=== PATIENT | male | born 1980 | race Caucasian/White ===

== ENCOUNTER 2022-02-10 19:22 | Observation (INO) | payer BC, SELFPAY ==
--- NOTE | ~2022-02-10 | CT_ITS ---
EXAMINATION: CT abdomen pelvis w con DATE: 02/10/2022 20:33 INDICATION: Abdominal pain, vomiting, dysuria for 2 days. Recurrent urinary tract infections. Fever. TECHNIQUE: Computed tomography (CT) of the abdomen and pelvis was performed with 100 CC Omnipaque 350 intravenous contrast. Automated exposure control and iterative reconstruction technique were employe d. Exam dose: 703.93 mGy-cm total exam DLP. COMPARISON: None. FINDINGS: There is mild patchy atelectasis in the lower lung zones. Borderline heart size. Small sliding hiatal hernia. Liver, gallbladder, spleen, pancreas, bile ducts and pancreatic duct are unremarkable. Normal morphology of the adrenal glands. There are several up to 7 mm right renal cysts and an approximately 3 mm left renal cyst. No urinary tract calculus or hydroureteronephrosis. The urinary bladder and prostate gland are unrema rkable. There are numerous diverticula of left and right colon, more numerous on the left. There is prominent pericolic fat stranding in the sigmoid colon area. There is an approximately 10 x 15 mm air and fluid containing cavity at the posterior aspect of the sigmoid colon consistent with a small extraluminal collection/small pericolic abscess. There is mild free fluid accumulation in the p elvic area. Small fat-containing umbilical hernia. Chronic mild to moderate compression fracture deformity of T12. Prominent degenerative disease at L4-5 and L5-S1. IMPRESSION: 10 x 15 mm anterior and minimal fluid containing cavity in the pericolic area in the sig moid region, in addition to prominent pericolic fat stranding and mild free fluid, consistent with di verticulitis, small diverticular abscess Small sliding hiatal hernia Hepatic steatosis Occasional small renal cysts Reviewed, dictated and finalized at [facility]. Reviewed, dictated and finalized at [facility]. IMPRESSION: 10 x 15 mm anterior and minimal fluid containing cavity in the per icolic area in the sigmoid region, in addition to prominent pericolic fat stran ding and mild free fluid, consistent with diverticulitis, small diverticular ab scess Small sliding hiatal hernia Hepatic steatosis Occasional small renal cysts
[2022-02-10 19:27] VITALS: BP 127/83; PULSE 113; RESP 18; TEMP 36; O2SAT 98
[2022-02-10] MEDS: ONDANSETRON INJ 4 MG/2 ML VIAL IV PUSH (19:53)
[2022-02-10] MEDS: SODIUM CHLORIDE 0.9% IV 1,000 ML 999 ML IV CONT (19:53)
[2022-02-10 20:01] LABS: Add Urine Microscopic? YES; Appearance Urine Clear (Clear); Bilirubin Urine Negative (Negative); Blood Urine Negative (Negative); Color Urine Yellow (Yellow); Glucose Urine UA Negative (Negative); Ketones Urine 1+ mg/dL (Negative); Leukocyte Esterase Ur Negative LEU/UL (Negative); Mucus Urine Rare /lpf; Nitrate Urine Negative (Negative); Protein Urine Negative (Negative); RBC Urine 0-2 /hpf (0-2); Specific Grav Ur 1.013 (1.001-1.035); Urobilinogen Urine Negative mg/dL (<2.0)
[2022-02-10 20:02] LABS: Basophils Percent Auto 0.3 % (0.2-1.2); Eosinophils Percent Auto 0.1 % (0-4.4); Hemoglobin 14.3 g/dL (14.0-18.0); Immature Granulocyte Absolute 0.05 K/mm3 (0.00-0.031); Immature Granulocyte Percent A 0.3 % (0-0.5); Lymphocytes Absolute Auto 1.18 K/mm3 (0.9-3.2); Lymphocytes Percent Auto 8.1 % (18.3-44.2); Mean Corpuscular HGB Conc 34.9 g/dl (32-36); Mean Corpuscular Hemoglobin 32.1 pg (26-34); Mean Corpuscular Volume 92.1 fl (80-100); Mean Platelet Volume 9.9 fl (7.4-10.4); Monocytes Absolute Auto 1.1 K/mm3 (0.1-0.6); Monocytes Percent Auto 7.8 % (2.6-8.5); Neutrophils Absolute Auto 12.2 K/mm3 (1.3-6.7); Neutrophils Percent Auto 83.4 % (45.5-73.1); Platelet Count Result 206 k/mm3 (150-375); Red Blood Count 4.45 M/mm3 (4.6-6.20); Red Cell Distribution Width 12.6 % (11.5-14.5); White Blood Count 14.6 K/mm3 (4.5-10.0)
--- NOTE | 2022-02-10 20:08 | ED.MALEGU ---
HPI - Male Genitourinary General Chief complaint: Urogenital-Male <Magda Garcia PA-C - Last Filed: 02/10/22 21:44> Stated complaint: UTI, N/V <CASSANDRA Muir Last Filed: 02/10/22 21:44> Time Seen by Provider: 02/10/22 19:39 <CASSANDRA Muir Last Filed: 02/10/22 21:44> Source: patient <CASSANDRA Muir Last Filed: 02/10/22 21:44> Mode of arrival: ambulatory <CASSANDRA Muir Last Filed: 02/10/22 21:44> Limitations: no limitations <CASSANDRA Muir Last Filed: 02/10/22 21:44> History of Present Illness HPI Narrative: This is a 41 year old male that presents to the ER for nausea and vomiting today. Reports he has had fevers the last couple of days. Associated with feelings of incompletely emptying his bladder. Reports he feels like he pulled a muscle in his groin. He has had some dysuria. He was evaluated at urgent care today and started on ciprofloxacin. He tried to take this medication at home, but vomited after which prompted him to be seen. Denies fever or hematuria. <CASSANDAR Muir Last Filed: 02/10/22 21:44> Related Data Home medications: Home Medications Medication Instructions Recorded Confirmed aripiprazole [Abilify] 10 mg PO DAILY 02/10/22 02/10/22 lamotrigine [Lamictal] 100 mg PO DAILY 02/10/22 02/10/22 omeprazole 40 mg PO DAILY 02/10/22 02/10/22 <CASSANDRA Muir Last Filed: 02/10/22 21:44> Allergies/Adverse reactions: Allergies Allergy/AdvReac Type Severity Reaction Status Date / Time No Known Allergies Allergy Verified 02/10/22 19:29 <CASSANDRA Muir Last Filed: 02/10/22 21:44> Review of Systems Review of Systems: CONSTITUTIONAL: Reports fever GASTROINTESTINAL: Reports abdominal pain, nausea, vomiting GENITOURINARY: Reports dysuria. Denies hematuria. <Magda Garcia PA-C - Last Filed: 02/10/22 21:44> All systems reviewed & are unremarkable except as noted in HPI and below <Magda Garcia PA-C - Last Filed: 02/10/22 21:44> PMFSH Past Medical History Medical History: Medical History History of bipolar disorder <Magda Garcia PA-C - Last Filed: 02/10/22 21:44> Surgical History Surgical History: Surgical History History of appendectomy <Magda Garcia PA-C - Last Filed: 02/10/22 21:44> Social History Social History: Social History Smoking status: Never smoker Alcohol intake: current Substance use: never Substance use type: does not use Spiritual care concerns: No <Magda Garcia PA-C - Last Filed: 02/10/22 21:44> Exam Narrative: GENERAL: Well-appearing, well-nourished, and in no acute distress. HEAD: Normocephalic, atraumatic. EYES: EOMI. CHEST: Clear to auscultation. No respiratory distress. No wheezes rales or rhonchi HEART: Regular rate and rhythm. No murmur heard. Normal peripheral pulses. ABDOMEN: Soft, nondistended, normal active bowel sounds. Mild tenderness to palpation throughout the lower abdomen, without guarding EXTREMITIES: Normal range of motion. No edema. SKIN: Warm, dry, no rash. NEURO: No focal deficits. Alert and oriented x3. PSYCH: Normal mood and affect <Magda Garcia PA-C - Last Filed: 02/10/22 21:44> Course FISH FLIPPER/PA Physician Supervision For this patient encounter, I reviewed the FISH FLIPPER or PA documentation, treatment plan, and medical decision making; and I had [id number] time with this patient. <Bright Wheeler MD - Last Filed: 02/11/22 02:31> Consultations Consultation #1: Spoke with general surgery who will consult. <Magda Garcia PA-C - Last Filed: 02/10/22 21:44> Date: 02/10/22 <Magda Garcia PA-C - Last Filed: 02/10/22 21:44> Consultation #2: Spoke with hospitalist about patien
[2022-02-10 20:13] LABS: Alanine Aminotransferase 34 U/L (4-50); Albumin Level 4.3 g/dL (3.5-5.1); Alkaline Phosphatase 55 U/L (38-126); Anion Gap 9 mmol/L (8-16); Aspartate Amino Transferase 31 U/L (17-59); Bilirubin,Total 1.5 mg/dL (0.2-1.3); Blood Urea Nitrogen 10 mg/dL (9-20); Calcium 8.7 mg/dL (8.4-10.2); Carbon Dioxide 23 mmol/L (22-30); Chloride 102 mmol/L (98-107); Estimated CRCL calculation 113 ml/min; Estimated Glomerular Filt Rate > 60; Glucose 140 mg/dL (65-110); Lipase 20 U/L (23-300); Sodium 134 mmol/L (137-145)
[2022-02-10 21:00] LABS: Lactic Acid Reflex 0.9 mmol/L (0.7-2.1)
[2022-02-10 21:16] VITALS: BP 113/92; PULSE 78; RESP 18; O2SAT 98
--- NOTE | 2022-02-10 21:42 | PM.IMHP ---
H&P: HPI History of Present Illness Date/Time: 02/10/22 21:42 Chief Complaint: 41 years old male with past medical history of bipolar disorder presented to the hospital with nausea and vomiting started today multiple times a day associated with difficulty with urination patient had fever started 2 days ago no aggravating or relieving factor patient went to the urgent care where he was diagnosed as UTI treated with the Cipro and was sent home patient continued to have vomiting presented back to the ER CT scan of the abdomen was done shows acute diverticulitis with small abscess surgery was consulted patient was started on broad-spectrum IV antibiotic IV fluid admitted for further evaluation and treatment Review of Systems Review of Systems: All systems reviewed & are unremarkable except as noted in HPI and below PMFSH Past Medical History Medical History History of bipolar disorder Surgical History Surgical History History of appendectomy Social History Social History Substance use: never Meds Home Medications and Allergies Home Medications Medication Instructions Recorded Confirmed Type aripiprazole [Abilify] 10 mg PO DAILY 02/10/22 02/10/22 History lamotrigine [Lamictal] 100 mg PO DAILY 02/10/22 02/10/22 History omeprazole 40 mg PO DAILY 02/10/22 02/10/22 History Allergies Allergy/AdvReac Type Severity Reaction Status Date / Time No Known Allergies Allergy Verified 02/10/22 19:29 Vital Signs Vital Signs - 24 hr 02/10/22 19:27 02/10/22 21:16 Temperature 96.8 F L Pulse Rate 113 H 78 Respiratory Rate 18 18 Blood Pressure 127/83 113/92 H Pulse Oximetry 98 98 Exam Const: General: in distress HENMT: Mouth: Yes dry mucous membranes Eyes: Sclera: sclerae normal Neck: Neck: supple Resp: Effort & Inspection: normal respiratory effort Auscultation: clear to auscultation bilaterally Cardio: Rate: regular rate and not bradycardic Rhythm: regular rhythm and regular rhythm Heart sounds: no gallops, no murmurs and no rubs GI: Inspection: non-distended GI Palp: Yes Tenderness to palpation present (GI), No Guarding due to palpation present (GI) and No Hernia present Auscultation: normal bowel sounds and bowels sounds normal Skin: General skin exam: normal color Neuro: Cognition (Neuro): normal cognition Speech: normal speech Motor exam (neuro): 5/5 motor strength present throughout and Normal motor muscle tone present throughout Sensory Exam: normal sensation Extrem: General: normal to inspection Right upper extremity: normal to inspection and no joint enlargement Left upper extremity: normal to inspection and no joint enlargement Right lower extremity: normal to inspection and no joint enlargement Left lower extremity: normal to inspection and no joint enlargement Psych: Mental Status: mental status grossly normal H&P: Results Labs Labs: Short CBC 02/10/22 Range/Units 19:48 WBC 14.6 H (4.5-10.0) K/mm3 Hgb 14.3 (14.0-18.0) g/dL Hct 41.0 L (42.0-52.0) % Plt Count 206 (150-375) k/mm3 BMP 02/10/22 19:48 Sodium 134 L Potassium 4.0 Chloride 102 Carbon Dioxide 23 BUN 10 Creatinine 0.80 Glucose 140 H Calcium 8.7 Liver Function 02/10/22 Range/Units 19:48 Total Bilirubin 1.5 H (0.2-1.3) mg/dL AST 31 (17-59) U/L ALT 34 (4-50) U/L Alkaline Phosphatase 55 (38-126) U/L Albumin 4.3 (3.5-5.1) g/dL Urine 02/10/22 Range/Units 19:48 Urine Color Yellow (Yellow) Urine Appearance Clear (Clear) Urine pH 7.0 (5.0-9.0) Ur Specific [place] 1.013 (1.001-1.035) Urine Protein Negative (Negative) mg/dL Urine Glucose (UA) Negative (Negative) mg/dL Assessment and Plan Assessment and plan (1) Diverticulitis of intestine with
[2022-02-10 22:00] VITALS: BP 118/79; PULSE 86; RESP 18; TEMP 36.9; O2SAT 97
[2022-02-10 22:05] VITALS: BP 107/68; PULSE 93; RESP 18
--- NOTE | 2022-02-10 22:05 | PC.NURSE ---
Pt and family requesting transfer to [facility] for care if surgery is required. Provider is aware, Inpatient doctor at bedside for evaluation.
[2022-02-10 22:40] VITALS: BMI 28.2
[2022-02-10] MEDS: SODIUM CHLORIDE 0.9% IV 1,000 ML 100 ML IV CONT (22:45)
--- NOTE | 2022-02-10 22:52 | ADMGEN ---
This patient, Davy Greco, was admitted to [facility] Surg Room 331-01. Patient/family oriented to hospital policies and general routines including ID bracelet, bed and alarms, visiting hours, pain management, procedures, bathroom and other care routines, personal items, smoking policy, room service/diet, and visiting hours. Information on how to activate the Rapid Response Team has been discussed. Patient/Family are encouraged to report perceived risks to care and to ask questions if they do not understand what they are told or what they should do.
[2022-02-11] VITALS (8 sets, daily range): BP systolic 104–130; BP diastolic 69–82; PULSE 80–97; RESP 16–18; TEMP 36.3–38.2; O2SAT 96–100
[2022-02-11 06:00] LABS: Basophils Percent Auto 0.3 % (0.2-1.2); Eosinophils Absolute Auto 0.1 K/mm3 (0-0.3); Eosinophils Percent Auto 0.6 % (0-4.4); Hematocrit 39.7 % (42.0-52.0); Hemoglobin 13.4 g/dL (14.0-18.0); Immature Granulocyte Absolute 0.04 K/mm3 (0.00-0.031); Immature Granulocyte Percent A 0.3 % (0-0.5); Lymphocytes Absolute Auto 1.06 K/mm3 (0.9-3.2); Lymphocytes Percent Auto 9.2 % (18.3-44.2); Mean Corpuscular HGB Conc 33.8 g/dl (32-36); Mean Corpuscular Hemoglobin 31.8 pg (26-34); Mean Corpuscular Volume 94.1 fl (80-100); Mean Platelet Volume 10.1 fl (7.4-10.4); Monocytes Absolute Auto 0.8 K/mm3 (0.1-0.6); Monocytes Percent Auto 6.8 % (2.6-8.5); Neutrophils Absolute Auto 9.6 K/mm3 (1.3-6.7); Neutrophils Percent Auto 82.8 % (45.5-73.1); Platelet Count Result 181 k/mm3 (150-375); Red Blood Count 4.22 M/mm3 (4.6-6.20); Red Cell Distribution Width 12.7 % (11.5-14.5); White Blood Count 11.6 K/mm3 (4.5-10.0)
[2022-02-11] MEDS: SODIUM CHLORIDE 0.9% IV 1,000 ML 100 ML IV CONT ×2 (06:07→18:10)
[2022-02-11 06:17] LABS: Alanine Aminotransferase 26 U/L (4-50); Albumin Level 3.7 g/dL (3.5-5.1); Alkaline Phosphatase 55 U/L (38-126); Anion Gap 6 mmol/L (8-16); Aspartate Amino Transferase 20 U/L (17-59); Bilirubin,Total 1.3 mg/dL (0.2-1.3); Blood Urea Nitrogen 8 mg/dL (9-20); Calcium 8.2 mg/dL (8.4-10.2); Carbon Dioxide 25 mmol/L (22-30); Chloride 108 mmol/L (98-107); Estimated CRCL calculation 101 ml/min; Estimated Glomerular Filt Rate > 60; Glucose 115 mg/dL (65-110); Potassium 3.8 mmol/L (3.4-5.0); Sodium 139 mmol/L (137-145)
[2022-02-11] MEDS: ACETAMINOPHEN 325 MG TABLET 650 MG PO (08:01)
[2022-02-11] MEDS: HEPARIN SODIUM 5,000 UNITS/ML VIAL 5000 UNITS SUB-Q (08:01)
--- NOTE | 2022-02-11 08:28 | PM.CNGS ---
Assessment and Plan Assessment and plan (1) Diverticulitis of intestine with abscess: Qualifiers: Diverticulitis bleeding: without bleeding Diverticulitis site: large intestine Qualified Code(s): K57.20 - Diverticulitis of large intestine with perforation and abscess without bleeding Code(s): K57.80 - Diverticulitis of intestine, part unspecified, with perforation and abscess without bleeding Status: Acute Assessment and Plan: exam benign, cont IV abx, will start clears and ADAT, if lexii diet prob home c po abx, f/u 2 wks to schedule interval colonoscopy History of Present Illness Consult details Consult date: 02/11/22 Reason for consult: abdominal pain Requesting physician: Lola Rivera M.A., MD Narrative: The patient is a 41-year-old male with a history of bipolar disease and presenting to the emergency department complaining of severe lower abdominal pain, pressure. The patient reports symptoms have been present for the last 48-72 hours and associated with nausea and vomiting. The patient reports the pain is more pressure and dull, worse on the left side. The patient denies any previous symptomatology. The patient reports he has been having some diarrhea. Patient also describes anorexia and a general feeling of malaise, although no fevers or chills. Review of Systems Constitutional: Constitutional: Reports anorexia, Denies chills, Reports fatigue, Denies fever(s), Reports lethargy, Reports malaise, Denies night sweats, Reports poor appetite, Reports weakness, Denies weight gain and Denies weight loss Eyes: Eyes: Reports no additional eye complaints ENT: Reports system reviewed and no additional complaints, except as documented Cardiovascular: Cardiovascular: Reports no additional cardiovascular complaints Respiratory: Respiratory: Reports no additional respiratory complaints Gastrointestinal: Gastrointestinal: Reports as per HPI, Reports abdominal pain, Reports bloating, Reports change in bowel habits, Reports change in stool character, Reports GI cramping, Reports early satiety, Reports diarrhea, Reports loose stools, Reports nausea, Reports vomiting and Denies hematemesis Genitourinary: Genitourinary: Reports dysuria and Reports urinary hesitancy Musculoskeletal: Musculoskeletal: Reports no additional musculoskeletal complaints Integumentary/Breasts: Skin/Breast: Reports system reviewed and no additional complaints, except as docu Neurologic: Reports system reviewed and no additional complaints, except as documented Psychiatric: Psychiatric: Reports no additional psychiatric complaints Endocrine: Endocrine: Reports no additional endocrine complaints Hematologic/Lymphatic: Hematologic/Lymphatic: Reports no additional hematologic/lymphatic complaints Allergic/Immunologic: Allergic/Immunologic: Reports no additional allergic/immunologic complaints [facility] Past Medical History Medical History History of bipolar disorder Surgical History Surgical History History of appendectomy Social History Social History Smoking status: Never smoker Alcohol intake: current Substance use: never Substance use type: does not use Spiritual care concerns: No Comments FH - denies known diverticular dz, CRC Meds Home Medications and Allergies Home Medications Medication Instructions Recorded Confirmed Type aripiprazole [Abilify] 10 mg PO DAILY 02/10/22 02/10/22 History lamotrigine [Lamictal] 100 mg PO DAILY 02/10/22 02/10/22 History omeprazole 40 mg PO DAILY 02/10/22 02/10/22 History Allergies Allergy/AdvReac Type Severity Reaction Status Date / Time No Known Allergies Allergy Verified 02/10/22 19:29 Vital Signs Vital Signs - 24 hr 02/10/22 19:27 02/10/22 21:16 02/10/22 22:00 Temperature 36.0 C L 36.9 C
[2022-02-11] MEDS: lamoTRIgine 100 MG TABLET PO (10:14)
[2022-02-11] MEDS: ARIPiprazole 10 MG TABLET PO (10:14)
--- NOTE | 2022-02-11 10:46 | PM.IMPN ---
Progress Note: A&P Assessment and Plan (1) Diverticulitis of intestine with abscess: Qualifiers: Diverticulitis bleeding: without bleeding Diverticulitis site: large intestine Qualified Code(s): K57.20 - Diverticulitis of large intestine with perforation and abscess without bleeding Code(s): K57.80 - Diverticulitis of intestine, part unspecified, with perforation and abscess without bleeding Status: Acute Assessment and Plan: -Reviewed CT scan of the abdomen -Shows positive diverticulitis with small abscess -Surgery consult -IV Zosyn -IV hydration -per surgery ADAT (2) Dehydration: Code(s): E86.0 - Dehydration Status: Acute Assessment and Plan: -continue IV fluid (3) Abnormal CT of the abdomen: Code(s): R93.5 - Abnormal findings on diagnostic imaging of other abdominal regions, including retroperitoneum Status: Acute Assessment and Plan: -Kidney cyst -Small fat-containing umbilical hernia. -Chronic mild to moderate compression fracture deformity of T12. -Prominent degenerative disease at L4-5 and L5-S1 Continue to monitor follow-up with PCP as outpatient. (4) Bipolar disorder: Code(s): F31.9 - Bipolar disorder, unspecified Status: Acute Assessment and Plan: -Stable continue Lamictal (5) Sepsis: Code(s): A41.9 - Sepsis, unspecified organism Status: Acute Assessment and Plan: -met SIRS criteria on arrival with fever of 100.7, leukocytosis of 14.6, and tachycardia at 113 -received IVF bolus and now going at 125/hr -source is diverticulitis -improving (6) Hyperglycemia: Code(s): R73.9 - Hyperglycemia, unspecified Status: Acute Assessment and Plan: -likely reactive -A1c is 5 Subjective Date/time seen: 02/11/22 10:46 Interval history: 41 years old male with past medical history of bipolar disorder admitted for diverticulitis and sepsis. Pt is feeling better currently. Tolerating clears. No N/V/abd pain. Did have an episode of watery diarrhea this morning. Also had fever overnight and is diaphoretic on exam. No cp/sob. Review of Systems Review of Systems: All systems reviewed & are unremarkable except as noted in HPI and below Exam Narrative: General: No acute distress, diaphoretic, comfortable Eyes: PERRL, no scleral icterus HEENT: NCAT, external ears normal, MMM Respiratory: No respiratory distress, Lungs CTA bilaterally, no wheezing Cardiovascular: RRR, no murmur Abdominal: Soft, nontender, non distended, no rebound or guarding Musculoskeletal: Moves all 4 extremities, no edema Neurological: A/Ox3, speech clear, no facial asymmetry Skin: Warm, diaphoretic Psychiatric: Normal affect, normal mood Objective Data Vital Signs Vital Signs: Vital Signs - 24 hr 02/10/22 19:27 02/10/22 21:16 02/10/22 22:00 Temperature 96.8 F L 98.4 F Pulse Rate 113 H 78 86 Respiratory Rate 18 18 18 Blood Pressure 127/83 113/92 H 118/79 Pulse Oximetry 98 98 97 02/10/22 22:05 02/11/22 00:00 02/11/22 04:00 Temperature 98.0 F 100.7 F H Pulse Rate 93 80 87 Respiratory Rate 18 18 18 Blood Pressure 107/68 104/69 114/77 Pulse Oximetry 98 96 02/11/22 07:57 02/11/22 08:01 02/11/22 09:01 Temperature 99.8 F H 99.8 F H 97.3 F L Pulse Rate Respiratory Rate Blood Pressure Pulse Oximetry Intake/Output Intake/Output: Intake & Output 02/08/22 02/09/22 02/10/22 02/11/22 23:59 23:59 23:59 23:59 Intake Total 1150 1050 Balance 1150 1050 Meds/Results Medications: Active Medications Generic Name Dose Route Start Last Admin Trade Name Freq PRN Reason Stop Dose Admin Acetaminophen 650 mg 02/10/22 21:40 02/11/22 08:01 Acetaminophen 325 Mg Tablet PO 650 mg Q4H PRN Administration Mild Pain (1-3) or Fever Hydrocodone Bitart/Acetaminophen 1 tab 02/10/22 21:40 Hydrocodone/Acetaminophen
[2022-02-12] MEDS: SODIUM CHLORIDE 0.9% IV 1,000 ML 100 ML IV CONT (05:33)
[2022-02-12 06:00] VITALS: BP 125/82; PULSE 80; RESP 16; TEMP 37; O2SAT 97
[2022-02-12 06:03] LABS: Basophils Percent Auto 0.5 % (0.2-1.2); Eosinophils Absolute Auto 0.2 K/mm3 (0-0.3); Eosinophils Percent Auto 2.2 % (0-4.4); Hematocrit 36.4 % (42.0-52.0); Hemoglobin 12.5 g/dL (14.0-18.0); Immature Granulocyte Absolute 0.02 K/mm3 (0.00-0.031); Immature Granulocyte Percent A 0.2 % (0-0.5); Lymphocytes Absolute Auto 1.49 K/mm3 (0.9-3.2); Lymphocytes Percent Auto 18.3 % (18.3-44.2); Mean Corpuscular HGB Conc 34.3 g/dl (32-36); Mean Corpuscular Hemoglobin 31.6 pg (26-34); Mean Corpuscular Volume 91.9 fl (80-100); Mean Platelet Volume 9.9 fl (7.4-10.4); Monocytes Absolute Auto 0.6 K/mm3 (0.1-0.6); Monocytes Percent Auto 7.2 % (2.6-8.5); Neutrophils Absolute Auto 5.8 K/mm3 (1.3-6.7); Neutrophils Percent Auto 71.6 % (45.5-73.1); Platelet Count Result 189 k/mm3 (150-375); Red Blood Count 3.96 M/mm3 (4.6-6.20); Red Cell Distribution Width 12.4 % (11.5-14.5); White Blood Count 8.2 K/mm3 (4.5-10.0)
[2022-02-12 06:14] LABS: Alanine Aminotransferase 23 U/L (4-50); Albumin Level 3.4 g/dL (3.5-5.1); Alkaline Phosphatase 48 U/L (38-126); Anion Gap 5 mmol/L (8-16); Aspartate Amino Transferase 19 U/L (17-59); Bilirubin,Total 0.6 mg/dL (0.2-1.3); Blood Urea Nitrogen 6 mg/dL (9-20); Carbon Dioxide 25 mmol/L (22-30); Chloride 110 mmol/L (98-107); Estimated CRCL calculation 101 ml/min; Estimated Glomerular Filt Rate > 60; Glucose 112 mg/dL (65-110); Potassium 3.7 mmol/L (3.4-5.0); Sodium 140 mmol/L (137-145)
[2022-02-12 08:00] VITALS: PULSE 80; RESP 16; O2SAT 97
[2022-02-12] MEDS: lamoTRIgine 100 MG TABLET PO (08:37)
[2022-02-12] MEDS: ARIPiprazole 10 MG TABLET PO (08:39)
--- NOTE | 2022-02-12 09:12 | PM.IMPN ---
Progress Note: A&P Assessment and Plan (1) Diverticulitis of intestine with abscess: Qualifiers: Diverticulitis bleeding: without bleeding Diverticulitis site: large intestine Qualified Code(s): K57.20 - Diverticulitis of large intestine with perforation and abscess without bleeding Code(s): K57.80 - Diverticulitis of intestine, part unspecified, with perforation and abscess without bleeding Status: Acute Assessment and Plan: -Reviewed CT scan of the abdomen -Shows positive diverticulitis with small abscess -IV Zosyn -IV hydration -per surgery ADAT (2) Sepsis: Code(s): A41.9 - Sepsis, unspecified organism Status: Acute Assessment and Plan: -met SIRS criteria on arrival with fever of 100.7, leukocytosis of 14.6, and tachycardia at 113 -received IVF bolus and now going at 125/hr -source is diverticulitis -improving, will dc IVF -no fever x24 hours, if BC have no growth tomorrow after 48 hours, can likely transition to PO abx and dc home (3) Dehydration: Code(s): E86.0 - Dehydration Status: Acute Assessment and Plan: -improved (4) Abnormal CT of the abdomen: Code(s): R93.5 - Abnormal findings on diagnostic imaging of other abdominal regions, including retroperitoneum Status: Acute Assessment and Plan: -Kidney cyst -Small fat-containing umbilical hernia. -Chronic mild to moderate compression fracture deformity of T12. 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 (5) Bipolar disorder: Code(s): F31.9 - Bipolar disorder, unspecified Status: Acute Assessment and Plan: -Stable continue Lamictal (6) Hyperglycemia: Code(s): R73.9 - Hyperglycemia, unspecified Status: Acute Assessment and Plan: -likely reactive -A1c is 5 Subjective Date/time seen: 02/12/22 09:12 Interval history: 41 years old male with past medical history of bipolar disorder admitted for diverticulitis and sepsis. Pt is feeling better currently. Tolerating low fiber. No N/V/abd pain. Still having diarrhea but it is less watery. No cp/sob. Review of Systems Review of Systems: All systems reviewed & are unremarkable except as noted in HPI and below Exam Narrative: General: No acute distress, non toxic Eyes: PERRL, no scleral icterus HEENT: NCAT, external ears normal, MMM Respiratory: No respiratory distress, Lungs CTA bilaterally, no wheezing Cardiovascular: RRR, no murmur Abdominal: Soft, nontender, non distended, no rebound or guarding Musculoskeletal: Moves all 4 extremities, no edema Neurological: A/Ox3, speech clear, no facial asymmetry Skin: Warm, dry Psychiatric: Normal affect, normal mood Objective Data Vital Signs Vital Signs: Vital Signs - 24 hr 02/11/22 14:00 02/11/22 22:00 02/12/22 06:00 Temperature 98.4 F 99.5 F 98.6 F Pulse Rate 89 97 80 Respiratory Rate 16 16 16 Blood Pressure 122/82 130/80 125/82 Pulse Oximetry 100 97 97 Intake/Output Intake/Output: Intake & Output 02/09/22 02/10/22 02/11/22 02/12/22 23:59 23:59 23:59 23:59 Intake Total 1150 2930 1690 Balance 1150 2930 1690 Meds/Results Medications: Active Medications Generic Name Dose Route Start Last Admin Trade Name Freq PRN Reason Stop Dose Admin Acetaminophen 650 mg 02/10/22 21:40 02/11/22 08:01 Acetaminophen 325 Mg Tablet PO 650 mg Q4H PRN Administration Mild Pain (1-3) or Fever Hydrocodone Bitart/Acetaminophen 1 tab 02/10/22 21:40 Hydrocodone/Acetaminophen (*Crx) 5-325 Mg Tablet PO Q4H PRN Moderate Pain (4-6) Al Hydrox/Mg Hydrox/Simethicone 30 ml 02/10/22 21:40 Mag Hydrox/Al Hydrox/Simeth 30 Ml Udc PO QID PRN Dyspepsia Aripiprazole 10 mg 02/11/22 09:00 02/12/22 08:39 Aripiprazole 10 Mg Tablet PO 10 mg DAILY NICKO Administration Heparin Sodium (Porcine) 5
--- NOTE | 2022-02-12 11:00 | PM.PNGS ---
Progress Note: A&P Assessment and Plan (1) Diverticulitis of intestine with abscess: Qualifiers: Diverticulitis bleeding: without bleeding Diverticulitis site: large intestine Qualified Code(s): K57.20 - Diverticulitis of large intestine with perforation and abscess without bleeding Code(s): K57.80 - Diverticulitis of intestine, part unspecified, with perforation and abscess without bleeding Status: Acute Assessment and Plan: Improved. Plan to discharge tomorrow if condition remains the same. Will continue low residue diet for 2 weeks and follow up with Dr. Carter for further management. (2) Sepsis: Qualifiers: Sepsis type: sepsis due to unspecified organism Sepsis acute organ dysfunction status: unspecified Qualified Code(s): A41.9 - Sepsis, unspecified organism Code(s): A41.9 - Sepsis, unspecified organism Status: Acute Assessment and Plan: Spoke with hospitalist. Still waiting for blood culture results which will be back tomorrow. Probably home tomorrow if blood culture results are negative. Subjective Subjective Date/Time Seen: 02/12/22 11:00 Patient reports: no new complaints, feels better, tolerating a regular diet, bowel movement and afebrile Review of Systems Review of Systems: All systems reviewed & are unremarkable except as noted in HPI and below Constitutional: Constitutional: Denies headache(s) Cardiovascular: Cardiovascular: Denies chest pain and Denies dyspnea Respiratory: Respiratory: Denies cough and Denies dyspnea Gastrointestinal: Gastrointestinal: Reports as per HPI, Denies abdominal pain, Denies diarrhea, Denies nausea and Denies vomiting Exam Const: General: comfortable and no acute distress; No confusion Orientation/consciousness: patient oriented x3 and No confusion GI: Inspection: normal to inspection and non-distended GI Palp: Yes Soft to palpation, No Tenderness to palpation present (GI), No Guarding due to palpation present (GI), No Palpable mass present and No Rebound tenderness present Auscultation: normal bowel sounds Neuro: General: patient oriented x3, no focal motor deficits and No confusion Extrem: General: no calf tenderness and no edema Psych: Affect: normal affect Insight: Good insight present (Psych) Judgement: Good judgement present (Psych) Objective Data Vital Signs Vital Signs: Vital Signs - 24 hr 02/11/22 14:00 02/11/22 22:00 02/12/22 06:00 Temperature 36.9 C 37.5 C 37.0 C Pulse Rate 89 97 80 Respiratory Rate 16 16 16 Blood Pressure 122/82 130/80 125/82 Pulse Oximetry 100 97 97 02/12/22 08:00 Temperature Pulse Rate 80 Respiratory Rate 16 Blood Pressure Pulse Oximetry 97 Intake/Output Intake/Output: Intake & Output 02/09/22 02/10/22 02/11/22 02/12/22 23:59 23:59 23:59 23:59 Intake Total 1150 2930 1690 Balance 1150 2930 1690 Meds/Results Medications: Active Medications Generic Name Dose Route Start Last Admin Trade Name Freq PRN Reason Stop Dose Admin Acetaminophen 650 mg 02/10/22 21:40 02/11/22 08:01 Acetaminophen 325 Mg Tablet PO 650 mg Q4H PRN Administration Mild Pain (1-3) or Fever Hydrocodone Bitart/Acetaminophen 1 tab 02/10/22 21:40 Hydrocodone/Acetaminophen (*Crx) 5-325 Mg Tablet PO Q4H PRN Moderate Pain (4-6) Al Hydrox/Mg Hydrox/Simethicone 30 ml 02/10/22 21:40 Mag Hydrox/Al Hydrox/Simeth 30 Ml Udc PO QID PRN Dyspepsia Aripiprazole 10 mg 02/11/22 09:00 02/12/22 08:39 Aripiprazole 10 Mg Tablet PO 10 mg DAILY NICKO Administration Heparin Sodium (Porcine) 5,000 units 02/11/22 09:00 02/12/22 08:36 Heparin Sodium 5,000 Units/Ml Vial SUB-Q Not Given Q12HR NICKO Piperacillin/Tazobactam/Dextrose 3.375 gm in 50 mls @ 100 mls/hr 02/11/22 06:00 02/12/22 05:29 Zosyn 3.375 Gm/D5w 50ml Pm IVPB 100 mls/hr Q6HR NICKO Administration Lamotrigine 100 mg 02/11/22 09:00 02/12/22 08:37 Marti
--- NOTE | 2022-02-12 12:45 | PC.NURSE ---
On 02/12/22, the student, Wale Gómez, provided care and completed [facility] documentation on this patient. I have reviewed the student's documentation and agree with the findings.
[2022-02-12 14:00] VITALS: BP 122/78; PULSE 81; RESP 16; TEMP 36.1; O2SAT 97
[2022-02-12 22:00] VITALS: BP 131/88; PULSE 82; RESP 16; TEMP 37.4; O2SAT 98
[2022-02-13 06:00] VITALS: BP 131/85; PULSE 80; RESP 16; TEMP 36.9; O2SAT 96
[2022-02-13 06:13] LABS: Basophils Percent Auto 0.5 % (0.2-1.2); Eosinophils Absolute Auto 0.3 K/mm3 (0-0.3); Eosinophils Percent Auto 3.4 % (0-4.4); Hematocrit 41.6 % (42.0-52.0); Hemoglobin 14.1 g/dL (14.0-18.0); Immature Granulocyte Absolute 0.03 K/mm3 (0.00-0.031); Immature Granulocyte Percent A 0.4 % (0-0.5); Lymphocytes Absolute Auto 1.71 K/mm3 (0.9-3.2); Lymphocytes Percent Auto 22.6 % (18.3-44.2); Mean Corpuscular HGB Conc 33.9 g/dl (32-36); Mean Corpuscular Hemoglobin 31.8 pg (26-34); Mean Corpuscular Volume 93.7 fl (80-100); Mean Platelet Volume 9.9 fl (7.4-10.4); Monocytes Absolute Auto 0.5 K/mm3 (0.1-0.6); Neutrophils Percent Auto 66.1 % (45.5-73.1); Platelet Count Result 230 k/mm3 (150-375); Red Blood Count 4.44 M/mm3 (4.6-6.20); Red Cell Distribution Width 12.3 % (11.5-14.5); White Blood Count 7.6 K/mm3 (4.5-10.0)
[2022-02-13 06:19] LABS: Alanine Aminotransferase 25 U/L (4-50); Alkaline Phosphatase 51 U/L (38-126); Anion Gap 8 mmol/L (8-16); Aspartate Amino Transferase 24 U/L (17-59); Bilirubin,Total 0.6 mg/dL (0.2-1.3); Blood Urea Nitrogen 10 mg/dL (9-20); Calcium 8.7 mg/dL (8.4-10.2); Carbon Dioxide 23 mmol/L (22-30); Chloride 108 mmol/L (98-107); Estimated CRCL calculation 101 ml/min; Estimated Glomerular Filt Rate > 60; Glucose 118 mg/dL (65-110); Potassium 3.9 mmol/L (3.4-5.0); Sodium 139 mmol/L (137-145)
[2022-02-13 08:00] VITALS: PULSE 80; RESP 16; O2SAT 96
--- NOTE | 2022-02-13 08:30 | PM.DS ---
DS: Admitting Diagnosis Discharge Date 02/13/22829 Admitting Diagnosis diverticulitis/sepsis DS: Discharge Diagnosis Discharge Diagnosis (1) Diverticulitis of intestine with abscess: Qualifiers: Diverticulitis bleeding: without bleeding Diverticulitis site: large intestine Qualified Code(s): K57.20 - Diverticulitis of large intestine with perforation and abscess without bleeding Code(s): K57.80 - Diverticulitis of intestine, part unspecified, with perforation and abscess without bleeding Status: Acute Assessment and Plan: -Reviewed CT scan of the abdomen -Shows positive diverticulitis with small abscess -IV Zosyn -IV hydration -per surgery ADAT (2) Sepsis: Qualifiers: Sepsis acute organ dysfunction status: unspecified Sepsis type: sepsis due to unspecified organism Qualified Code(s): A41.9 - Sepsis, unspecified organism Code(s): A41.9 - Sepsis, unspecified organism Status: Acute Assessment and Plan: -met SIRS criteria on arrival with fever of 100.7, leukocytosis of 14.6, and tachycardia at 113 -received IVF bolus and now going at 125/hr -source is diverticulitis -improving, will dc IVF -no fever x24 hours, if BC have no growth tomorrow after 48 hours, can likely transition to PO abx and dc home (3) Dehydration: Code(s): E86.0 - Dehydration Status: Acute Assessment and Plan: -improved (4) Abnormal CT of the abdomen: Code(s): R93.5 - Abnormal findings on diagnostic imaging of other abdominal regions, including retroperitoneum Status: Acute Assessment and Plan: -Kidney cyst -Small fat-containing umbilical hernia. -Chronic mild to moderate compression fracture deformity of T12. 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 (5) Bipolar disorder: Code(s): F31.9 - Bipolar disorder, unspecified Status: Acute Assessment and Plan: -Stable continue Lamictal (6) Hyperglycemia: Code(s): R73.9 - Hyperglycemia, unspecified Status: Acute Assessment and Plan: -likely reactive -A1c is 5 DS: Summary Hospital Course Hospital Course: Patient is a 41-year-old male with a past medical history of bipolar disorder and appendectomy who presented to the hospital nausea vomiting and difficulty urinating. CT of the abdomen showed acute diverticulitis with small abscess patient was started on IV Zosyn and fluids. General surgery was consulted. Labs have been on trend and white blood cell count is trending downward. Patient has been a fever of for greater than 24 hours and heart rate has returned back to normal. Blood cultures have no growth to date. Diet has been restarted and advance slowly. Patient is comfortable and ready to go. Patient denies any chest pain, shortness of breath, nausea, vomiting, diarrhea, constipation, weakness or fatigue. Patient will be discharged on antibiotics. Lab work and vital signs are stable. Status at Discharge Functional status at discharge: independent ambulation Overall status at discharge: patient is progressing back to baseline Time Spent with Patient Time attestation: Total time spent providing and/or coordinating discharge services: 36 minutes Time spent: Greater than 30 minutes Specific discharge activities: Diagnostic testing, chart review, developing a treatment plan, education, care coordination documentation, physical exam, result review Exam Const: General: cooperative, healthy appearing, no acute distress, well developed, alert and awake Nutritional Appearance: well nourished Orientation/consciousness: patient oriented x3 Limitations: no limitations HENMT: Head: normal to inspection Ears: hearing grossly normal bilaterally General nose exam: Normal external nose present Mouth: Yes Normal oral and palatal mucosa present, Yes lip normal and Yes tongue normal Teeth
[2022-02-13] MEDS: lamoTRIgine 100 MG TABLET PO (09:56)
[2022-02-13] MEDS: ARIPiprazole 10 MG TABLET PO (09:56)
[2022-02-13] MEDS: PANTOPRAZOLE 40 MG TABLET PO (09:56)
--- NOTE | 2022-02-13 10:21 | PM.PNGS ---
Progress Note: A&P Assessment and Plan (1) Diverticulitis of intestine with abscess: Qualifiers: Diverticulitis bleeding: without bleeding Diverticulitis site: large intestine Qualified Code(s): K57.20 - Diverticulitis of large intestine with perforation and abscess without bleeding Code(s): K57.80 - Diverticulitis of intestine, part unspecified, with perforation and abscess without bleeding Status: Acute Assessment and Plan: continues to do well. Home today on low-fiber diet. Follow-up with Dr. Carter in 2 weeks. Discussed instructions with the patient. He will go home on Augmentin. Blood cultures preliminarily were negative from admission. Subjective Subjective Date/Time Seen: 02/13/22 10:21 Patient reports: no new complaints, feels better, pain is less ( no abdominal pain), bowel movement and afebrile Review of Systems Review of Systems: All systems reviewed & are unremarkable except as noted in HPI and below Constitutional: Constitutional: Denies headache(s) Gastrointestinal: Gastrointestinal: Reports as per HPI Exam Const: General: comfortable and no acute distress; No confusion Orientation/consciousness: patient oriented x3 and No confusion GI: GI Palp: Yes Soft to palpation, Yes Tenderness to palpation present (GI), No Guarding due to palpation present (GI) and No Rebound tenderness present Auscultation: normal bowel sounds Neuro: General: patient oriented x3, no focal motor deficits and No confusion Extrem: General: no calf tenderness and no edema Psych: Affect: normal affect Insight: Good insight present (Psych) Judgement: Good judgement present (Psych) Objective Data Vital Signs Vital Signs: Vital Signs - 24 hr 02/12/22 14:00 02/12/22 22:00 02/13/22 06:00 Temperature 36.1 C L 37.4 C 36.9 C Pulse Rate 81 82 80 Respiratory Rate 16 16 16 Blood Pressure 122/78 131/88 131/85 Pulse Oximetry 97 98 96 Intake/Output Intake/Output: Intake & Output 02/10/22 02/11/22 02/12/22 02/13/22 23:59 23:59 23:59 23:59 Intake Total 1150 2930 2820 50 Balance 1150 2930 2820 50 Meds/Results Medications: Active Medications Generic Name Dose Route Start Last Admin Trade Name Freq PRN Reason Stop Dose Admin Acetaminophen 650 mg 02/10/22 21:40 02/11/22 08:01 Acetaminophen 325 Mg Tablet PO 650 mg Q4H PRN Administration Mild Pain (1-3) or Fever Hydrocodone Bitart/Acetaminophen 1 tab 02/10/22 21:40 Hydrocodone/Acetaminophen (*Crx) 5-325 Mg Tablet PO Q4H PRN Moderate Pain (4-6) Al Hydrox/Mg Hydrox/Simethicone 30 ml 02/10/22 21:40 Mag Hydrox/Al Hydrox/Simeth 30 Ml Udc PO QID PRN Dyspepsia Aripiprazole 10 mg 02/11/22 09:00 02/13/22 09:56 Aripiprazole 10 Mg Tablet PO 10 mg DAILY NICKO Administration Heparin Sodium (Porcine) 5,000 units 02/11/22 09:00 02/13/22 09:57 Heparin Sodium 5,000 Units/Ml Vial SUB-Q Not Given Q12HR NICKO Piperacillin/Tazobactam/Dextrose 3.375 gm in 50 mls @ 100 mls/hr 02/11/22 06:00 02/13/22 05:31 Zosyn 3.375 Gm/D5w 50ml Pm IVPB 100 mls/hr Q6HR NICKO Administration Lamotrigine 100 mg 02/11/22 09:00 02/13/22 09:56 Lamotrigine 100 Mg Tablet PO 100 mg DAILY NICKO Administration Morphine Sulfate 2 mg 02/10/22 21:40 Morphine Sulfate (*Crx) 2 Mg/Ml Inj IV PUSH Q4H PRN Pain Rated 7-10 Ondansetron HCl 4 mg 02/10/22 21:40 Ondansetron Inj 4 Mg/2 Ml Vial IV PUSH Q6H PRN Nausea And Vomiting Pantoprazole Sodium 40 mg 02/12/22 09:00 02/13/22 09:56 Pantoprazole 40 Mg Tablet PO 03/14/22 08:59 40 mg DAILY NICKO Administration Radiology Results: ITS Impressions Abdomen/Pelvis CT 02/10/22 20:44 IMPRESSION: 10 x 15 mm anterior and minimal fluid containing cavity in the pericolic area in the sigmoid region, in addition to prominent pericolic fat stranding and mild free fluid, consistent with diverticulitis, small diverticular abscess
== END 2022-02-13 11:40 | disposition home or self-care (01) ==
LOC: ANHED 21:40 → ANH3MEDSUR 21:48
PROVIDERS: Physician Assistant; Admitting Provider Internal Medicine; Emergency Provider Emergency Medicine; Visit Provider Nurse Practitioner
DX: A41.9 Sepsis, unspecified organism (principal); K57.20 Diverticulitis of large intestine with perforation and abscess without bleeding; R73.9 Hyperglycemia, unspecified; R11.2 Nausea with vomiting, unspecified; E86.0 Dehydration; K42.9 Umbilical hernia without obstruction or gangrene; N28.1 Cyst of kidney, acquired; M47.816 Spondylosis without myelopathy or radiculopathy, lumbar region; M47.817 Spondylosis without myelopathy or radiculopathy, lumbosacral region; M48.54XA Collapsed vertebra, not elsewhere classified, thoracic region, initial encounter for fracture; F31.9 Bipolar disorder, unspecified
CPT/HCPCS: 36415; 74177; 80053; 81001; 83036; 83605; 83690; 85025; 87040; 96361; 96365; 96366; 96372; 96375; 99285; A9270; G0378; J0131; J1644; J2405; J2543; J7030; Q9967